=== PATIENT | male | born 1995 | race Caucasian/White ===

== ENCOUNTER 2020-12-22 22:04 | Emergency (ER) | payer OTHER ==
[2020-12-22 23:20] VITALS: O2SAT 97
[2020-12-22] MEDS ORDERED: TORAdol 30 mg Injection IM ONE (23:33)
[2020-12-22] MEDS ORDERED: PEN-VEE K PO STA (23:38)
--- NOTE | 2020-12-22 23:44 | ERPHSYRPT ---
- History of Present Illness Time Seen by Provider: 12/22/20 23:00 Source: patient Exam Limitations: no limitations Patient Subjective Stated Complaint: Patient states " I have had wisdom tooth pain last week to where I can feel my hearbeat and I can't tolerate the pain any longer". Triage Nursing Assessment: Patient arrived to ED and ambulated to room without difficulty. Patient A/O times 4. Patient able to follow instructions without difficulty. Patient with poor teeth in back. Tooth in the back on the left is broke. Patient denies H/A. Patient denies N/V. Patient stated the back and his wisdom teeth have been in poor condition for several years. No abcess noted upon visualization. Oral mucosa moist. Patient stated he should have taken better care of his teeth when he was a kid. No JVD. No edema noted to lymph nodes upon palpitation. Patient stated he sees a Dentist in [place] but hasn't made any appt. Physician History: Patient is a 25-year-old male presents to our ED with dental pain. Patient has been experiencing dental pain on his left upper molar for several weeks. Patient states pain significantly worse over the past several days. Pain described as an ache that is localized. No radiation. No trauma no fever no headache. Symptoms are mild to moderate in intensity. Mastication worsens symptoms. Rest improves pain. Patient otherwise healthy. He voices no other complaints or concerns at this time. Timing/Duration: day(s) Severity: moderate Modifying Factors: Improves With: cold therapy Associated Symptoms: denies symptoms Hx Tetanus, Diphtheria Vaccination/Date Given: Yes Hx Influenza Vaccination/Date Given: Yes Hx Pneumococcal Vaccination/Date Given: No Immunizations Up to Date: Yes Travel Risk - International Travel Have you traveled outside of the country in past 3 weeks: No - Coronavirus Screening Are you exhibiting any of the following symptoms?: No Close contact with a COVID-19 positive Pt in past 14-21 Days: No - Vaccine Status Have you recieved a Covid-19 vaccination: No - Review of Systems Constitutional: No Symptoms, No Fever, No Chills Eyes: No Symptoms Ears, Nose, & Throat: No Symptoms Respiratory: No Symptoms, No Cough, No Dyspnea Cardiac: No Symptoms, No Chest Pain, No Edema, No Syncope Abdominal/Gastrointestinal: No Symptoms, No Abdominal Pain, No Nausea, No Vomiting, No Diarrhea Genitourinary Symptoms: No Symptoms, No Dysuria Musculoskeletal: No Symptoms, No Back Pain, No Neck Pain Skin: No Symptoms, No Rash Neurological: No Symptoms, No Dizziness, No Focal Weakness, No Sensory Changes Psychological: No Symptoms Endocrine: No Symptoms Hematologic/Lymphatic: No Symptoms Immunological/Allergic: No Symptoms All Other Systems: Reviewed and Negative - Past Medical History Pertinent Past Medical History: No Neurological History: No Pertinent History ENT History: No Pertinent History Cardiac History: No Pertinent History Respiratory History: No Pertinent History Endocrine Medical History: No Pertinent History Musculoskeletal History: No Pertinent History GI Medical History: No Pertinent History History: No Pertinent History Psycho-Social History: No Pertinent History Male Reproductive Disorders: No Pertinent History - Past Surgical History Past Surgical History: No Neuro Surgical History: No Pertinent History Cardiac: No Pertinent History Respiratory: No Pertinent History Gastrointestinal: No Pertinent History Genitourinary: No Pertinent History Musculoskeletal: No Pertinent History Male Surgical History: No Pertinent History - Social History Smoking Status: Never smoker Exposure to second hand smoke: Yes Drug Use: none Patient Lives Alone: No - Nursing Vital Signs Nursing Vital Signs: Initial Vital Signs Temperature 98.1 F 12/22/20 22:52 Pulse Rate 84 12/22/20 22:52 Respiratory Rate 16 12/22/20 22:52 Blood Pressure 145/76 12/22/20 22:52 O2 Sat by Pulse Oximetry 96 12/22/20 22:52 Pain Scale Pain Intensity 3 - Physical Exam General Appearance: no apparent distress, alert Eye Exam: PERRL/EOMI, eyes nml inspection Ears, Nose, Throat Exam: normal ENT inspection, TMs normal, pharynx normal, moist mucous membranes, other (Tooth #16 is fractured carious. Continue adjacent gingiva is swollen red and tender. Airways patent. No intraoral lesions.) Neck Exam: normal inspection, non-tender, supple, full range of motion Respiratory Exam: normal breath sounds, lungs clear, No respiratory distress Cardiovascular Exam: regular rate/rhythm, normal heart sounds, normal peripheral pulses Gastrointestinal/Abdomen Exam: soft, normal bowel sounds, No tenderness, No mass Back Exam: normal inspection, normal range of motion, No CVA tenderness, No vertebral tenderness Extremity Exam: normal inspection, normal range of motion, pelvis stable Neurologic Exam: alert, oriented x 3, cooperative, normal mood/affect, nml cerebellar function, nml station & gait, sensation nml, No motor deficits Skin Exam: normal color, warm, dry, No rash Lymphatic Exam: No adenopathy SpO2 Interpretation: normal SpO2: 97 O2 Delivery: Room Air - Course Nursing assessment & vital signs reviewed: Yes Ordered Tests: Medication Summary Discontinued Medications Generic Name Dose Route Start Last Admin Trade Name Kristian PRN Reason Stop Dose Admin Ketorolac Tromethamine 60 mg 12/22/20 23:33 Toradol 30 Mg Injection IM 12/22/20 23:34 STAT ONE Penicillin V Potassium 500 mg 12/22/20 23:38 Pen-Vee K PO 12/22/20 23:39 ONCE STA - Progress Progress: improved Progress Note: Patient reassessed. Toradol and penicillin VK prescription forwarded to patient's pharmacy. Patient has an appointment scheduled with his dentist. Patient will follow up with his dentist as scheduled. Patient voices no other complaints concerns at this time. Will discharge home. 12/22/20 23:45 12/22/20 23:49 Counseled pt/family regarding: diagnosis, need for follow-up - Departure Departure Disposition: Home Clinical Impression: Pain, dental, Dental abscess, Carious teeth Condition: Stable Critical Care Time: No Referrals: DOCTOR,NO FAMILY [Primary Care Provider] - Instructions: Tooth Decay, Adult (DC), Dental Pain (DC), Tooth Abscess (DC) Additional Instructions: Discharge/Care Plan DRE ESPINOSA was seen on 12/22/20 in the Emergency Room. The patient was counseled regarding Diagnosis,Lab results, Imaging studies, need for follow up and when to return to the Emergency Room. Prescriptions given: Discharge Note I have spoken with the patient and/or caregivers. I have explained the patient's condition, diagnosis and treatment plan based on the information available to me at this time. I have answered the patient's and/or caregiver's questions and addressed any concerns. The patient and/or caregivers have as good understanding of the patient's diagnosis, condition and treatment plan as can be expected at this point. The vital signs have been stable. The patient's condition is stable and appropriate for discharge from the emergency department. The patient will pursue further outpatient evaluation with the primary care physician or other designated or consulting physician as outlined in the discharge instructions. The patient and/or caregivers are agreeable to this plan of care and follow-up instructions have been explained in detail. The patient and/or caregivers have received these instruction. The patient/and or caregivers are aware that any significant change in condition or worsening of symptoms should prompt an immediate return to this or the closest emergency department or call 911. Prescriptions: Penicillin V Potassium 500 mg PO TID 7 Days #21 tablet Ketorolac Tromethamine [Toradol] 10 mg PO TID 5 Days #15 tablet
[2020-12-22] MEDS ORDERED: PEN-VEE K ONE (23:45)
[2020-12-22] MEDS ORDERED: TORAdol 30 mg Injection ONE (23:45)
[2020-12-23 00:10] VITALS: BP 150/75; PULSE 85
== END 2020-12-23 00:12 | disposition home or self-care (01) ==
LOC: ED 22:04
DX: K08.89 Other specified disorders of teeth and supporting structures (principal); K04.7 Periapical abscess without sinus
CPT/HCPCS: 96372; 99283; J1885; A9270-GY

== ENCOUNTER 2021-09-14 00:51 | Emergency (ER) | payer OTHER ==
[2021-09-14 02:30] VITALS: PULSE 70; O2SAT 98
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
[2021-09-14 03:18] LABS: Absolute Neutrophil Ct (ANC) 3.02 (1.4-6.9); Basophil (Absolute #) 0.02 (0-0.4); Eosinophil % 2.2 % (0.00-5.0); Eosinophil (Absolute #) 0.16 (0-0.5); Hematocrit 43.3 % (42-50); Hemoglobin 14.4 gm/dl (12.5-18.0); Lymphocyte (Absolute #) 3.21 (1.0-4.6); Lymphocytes % 44.9 % (24.0-44.0); Mean Cell Volume 88.2 fl (78-100); Mean Corpuscular Hemoglobin 29.3 pg (26-32); Mean Corpuscular Hgb Concent. 33.3 g/dl (32-36); Mean Platelet Volume 9.3 fl (7.5-11.0); Monocyte (Absolute #) 0.74 (0.0-1.3); Monocytes % 10.3 % (0.0-12.0); Neutrophil % 42.3 % (36.0-66.0); Platelet Count 208 K/mm3 (150-450); Red Blood Count 4.91 M/mm3 (4.1-5.6); Red Cell Distribution Width 12.8 % (11.5-14.0); White Blood Count 7.2 K/mm3 (4.0-10.5)
[2021-09-14 03:22] LABS: INR 1.03 (0.8-3.0); PROTIME 12.1 SECONDS (9.4-12.5)
[2021-09-14 03:27] LABS: ALBUMIN 4.2 g/dL (3.5-5.0); ALKALINE PHOSPHATASE 59 U/L (38-126); ANION GAP 10.7 MEQ/L (5-15); BLOOD UREA NITROGEN 15 mg/dL (9-20); CHLORIDE 101 mmol/L (98-107); Calcium 8.9 mg/dL (8.4-10.2); Carbon Dioxide 32 mmol/L (22-30); Creatinine 1 0.97 mg/dL (0.66-1.25); EST GLOMERULAR FILTRATION RATE > 60.0 ML/MIN; Glucose 77 mg/dL (74-106); Potassium 4.2 mmol/L (3.5-5.1); SGOT/AST 23 U/L (17-59); SGPT/ALT 37 U/L (0-50); SODIUM 140 mmol/L (137-145); Total Protein 6.4 g/dL (6.3-8.2)
[2021-09-14 03:52] VITALS: BP 128/72
== END 2021-09-14 03:50 | disposition home or self-care (01) ==
LOC: ED 00:51
DX: Z00.00 Encounter for general adult medical examination without abnormal findings (principal)
CPT/HCPCS: 36415; 80053; 85025; 85610; 99283

== ENCOUNTER 2022-03-14 20:26 | Emergency (ER) | payer OTHER ==
[2022-03-14 21:30] VITALS: BP 141/82; PULSE 60; O2SAT 98
[2022-03-14] MEDS ORDERED: Zithromax 250 MG TABLET PO ONE (21:41)
[2022-03-14] MEDS ORDERED: Rocephin 1000 MG INJ IM ONE (21:41)
--- NOTE | 2022-03-14 21:44 | ERPHSYRPT ---
- History of Present Illness Time Seen by Provider: 03/14/22 20:28 Source: patient Exam Limitations: no limitations Patient Subjective Stated Complaint: pt states "it [place] when I pee" Triage Nursing Assessment: Pt c/o burning when urinating x3 days, pt denies fevers, being sexual active, urine frequency, pt denies pain at this time, pt is alert and oriented, pt is slightly hypertensive but other gore vitals wnl Physician History: 26 years old male presented in the ER with chief complaint of urinary frequency, burning and some clear discharge for the last 3 to 4 days. Also complaining of suprapubic discomfort. No fever or chills reported. Concerned about STDs and wants to be checked. Timing/Duration: day(s) (3) Activites at Onset: rest Quality: burning Onset Location: suprapubic, urethral Severity of Pain-Max: mild Severity of Pain-Current: none Modifying Factors: Worsens With: urinating Associated Symptoms: dysuria, urinary frequency, No fever Prior abdominal problems: none Sexual intercourse history: unprotected intercourse Allergies/Adverse Reactions: No Known Drug Allergies Allergy (Unverified 12/03/21 13:26) Hx Tetanus, Diphtheria Vaccination/Date Given: Yes Hx Influenza Vaccination/Date Given: No Hx Pneumococcal Vaccination/Date Given: No Immunizations Up to Date: Yes Travel Risk - International Travel Have you traveled outside of the country in past 3 weeks: No - Coronavirus Screening Are you exhibiting any of the following symptoms?: No Close contact with a COVID-19 positive Pt in past 14-21 Days: No - Vaccine Status Have you recieved a Covid-19 vaccination: No - Past Medical History Pertinent Past Medical History: Yes Neurological History: No Pertinent History ENT History: No Pertinent History Cardiac History: No Pertinent History Respiratory History: No Pertinent History Endocrine Medical History: No Pertinent History Musculoskeletal History: No Pertinent History GI Medical History: No Pertinent History History: No Pertinent History Psycho-Social History: Attention Deficit Disorder Male Reproductive Disorders: No Pertinent History - Past Surgical History Past Surgical History: Yes Neuro Surgical History: No Pertinent History Cardiac: No Pertinent History Respiratory: No Pertinent History Gastrointestinal: No Pertinent History Genitourinary: No Pertinent History Musculoskeletal: No Pertinent History Male Surgical History: No Pertinent History Other Surgical History: skin graft surgery - Social History Smoking Status: Current some day smoker How long have you smoked: two months Exposure to second hand smoke: No Drug Use: none Patient Lives Alone: No - Review of Systems Constitutional: No Symptoms Eyes: No Symptoms Ears, Nose, & Throat: No Symptoms Respiratory: No Symptoms Cardiac: No Symptoms Abdominal/Gastrointestinal: No Symptoms Genitourinary Symptoms: Dysuria, Frequency, Penile Discharge, No Flank Pain Musculoskeletal: No Symptoms Skin: No Symptoms Neurological: No Symptoms Endocrine: No Symptoms Hematologic/Lymphatic: No Symptoms - Nursing Vital Signs Nursing Vital Signs: Initial Vital Signs Temperature 97.1 F 03/14/22 20:55 Pulse Rate 70 03/14/22 20:55 Respiratory Rate 18 03/14/22 20:55 Blood Pressure 143/93 03/14/22 20:55 O2 Sat by Pulse Oximetry 97 03/14/22 20:55 Pain Scale Pain Intensity 0 - Physical Exam General Appearance: no apparent distress, alert Ears, Nose, Throat Exam: normal ENT inspection, pharynx normal Neck Exam: normal inspection, full range of motion Respiratory Exam: normal breath sounds, lungs clear Cardiovascular Exam: regular rate/rhythm, normal heart sounds Gastrointestinal/Abdomen Exam: soft, normal bowel sounds, No tenderness Back Exam: normal inspection, normal range of motion, No CVA tenderness Extremity Exam: normal inspection Neurologic Exam: alert, oriented x 3, cooperative Skin Exam: normal color SpO2 Interpretation: normal SpO2: 98 O2 Delivery: Room Air Ordered Tests: Active Orders 24 hr Category Date Time Status CULTURE,URINE Stat Lab 03/14/22 21:02 Received UA W/RFX CULTURE Stat Lab 03/14/22 21:02 Completed Medication Summary Discontinued Medications Generic Name Dose Route Start Last Admin Trade Name Kristian PRRita Reason Stop Dose Admin Azithromycin 1,000 mg 03/14/22 21:41 03/14/22 21:53 Azithromycin 250 Mg Tablet PO 03/14/22 21:42 1,000 mg STAT ONE Administration Azithromycin Confirm 03/14/22 21:52 Azithromycin 250 Mg Tablet Administered 03/14/22 21:53 Dose 1,000 mg .ROUTE .STK-MED ONE Ceftriaxone Sodium 500 mg 03/14/22 21:41 03/14/22 21:53 Ceftriaxone Sodium 1000 Mg Inj Vial IM 03/14/22 21:42 500 mg STAT ONE Administration Ceftriaxone Sodium Confirm 03/14/22 21:52 Ceftriaxone Sodium 1000 Mg Inj Vial Administered 03/14/22 21:53 Dose 1,000 mg .ROUTE .STK-MED ONE Lab/Rad Data: Laboratory Results 03/14/22 Range/Units 21:02 Urinalys Dipstick Clnc MAIN LAB Urine Color YELLOW (YELLOW) Urine Appearance SLIGHTLY CLOUDY (CLEAR) Urine pH 7.0 (5-6) Ur Specific [place] 1.020 (1.005-1.025) POC Urine Protein Conf NEGATIVE (Negative) Urine Ketones NEGATIVE (NEGATIVE) Urine Nitrite NEGATIVE (NEGATIVE) Urine Bilirubin NEGATIVE (NEGATIVE) Urine Urobilinogen 4 (0-1) mg/dL Urine Leukocytes TRACE (NEGATIVE) Urine WBC (Auto) 26-50 (0-5) /HPF Urine RBC (Auto) 0-2 (0-2) /HPF Urine Bacteria (Auto) MODERATE (NEGATIVE) /HPF Urine RBC NEGATIVE (0-5) Rajan/ul Urine Mucus (Auto) SLIGHT (NEGATIVE) /HPF Ur Culture Indicated? YES Urine Glucose NEGATIVE (NEGATIVE) mg/dL - Progress Progress: unchanged Progress Note: 03/14/22 22:22 Is given Rocephin and Zithromax. Does have UTI, started on antibiotic. Outpatient follow-up recommended. Discussed signs symptoms of worsening needing return to ER which she seems understanding. Counseled pt/family regarding: lab results, diagnosis, need for follow-up - Departure Departure Disposition: Home Clinical Impression: Acute UTI, Possible exposure to STD Condition: Stable Critical Care Time: No Referrals: SKYLER MENESES [Primary Care Provider] - Follow Up with PCP/3 days Instructions: Urinary Tract Infection, Adult (DC) Additional Instructions: Take Tylenol/ibuprofen as needed. Follow-up with primary care for reevaluation. Return to ER for worsening. Prescriptions: Ciprofloxacin [Cipro 500 MG] 500 mg PO BID #14 tablet
[2022-03-14 21:49] LABS: Bacteria MODERATE /HPF (NEGATIVE); Mucus SLIGHT /HPF (NEGATIVE); RBC 0-2 /HPF (0-2); WBC 26-50 /HPF (0-5)
[2022-03-14 21:50] LABS: Appearance SLIGHTLY CLOUDY (CLEAR); Bilirubin NEGATIVE (NEGATIVE); Dipstick done @ ? MAIN LAB; Glucose NEGATIVE (NEGATIVE); Ketones NEGATIVE (NEGATIVE); Nitrite NEGATIVE (NEGATIVE); Protein,Urine Dip NEGATIVE (Negative); RBC NEGATIVE Ery/ul (0-5); Urine Cultured Indicated? YES; Urobilinogen 4 mg/dL (0-1)
[2022-03-14] MEDS ORDERED: Zithromax 250 MG TABLET ONE (21:52)
[2022-03-14] MEDS ORDERED: Rocephin 1000 MG INJ ONE (21:52)
[2022-03-14 23:04] LABS: CHLAMYDIA DNA NOT DETECTED (NEGATIVE); GC DNA Probe NOT DETECTED (NEGATIVE)
== END 2022-03-14 22:31 | disposition home or self-care (01) ==
LOC: ED 20:26
DX: N39.0 Urinary tract infection, site not specified (principal); Z20.2 Contact with and (suspected) exposure to infections with a predominantly sexual mode of transmission; R30.0 Dysuria; R35.0 Frequency of micturition; R10.2 Pelvic and perineal pain; Z72.0 Tobacco use; Z28.310 Unvaccinated for COVID-19
CPT/HCPCS: 81015; 87086; 87491; 87591; 96372; 99283; J0696; A9270-GY